=== PATIENT | female | born 1945 | race Caucasian/White ===

== ENCOUNTER 2017-03-12 07:12 | Observation (INO) ==
[~2017-03-12 07:12] MED LIST: ASPIRIN 325 MG TABLET PO ONE; DIAZEPAM 5 MG TABLET PO ONE; MAGNESIUM SULF RIDER 2 GM in PREMIX 1 EACH IV PRN; POTASSIUM CHLORIDE RIDER 10 MEQ in PREMIX 1 EACH IV PRN; SODIUM CHLORIDE 0.45% 1,000 ML IV SCH; diphenhydrAMINE CAP 25 MG CAPSULE PO ONE
[2017-03-12] MEDS ORDERED: DIAZEPAM 5 MG TABLET ONE (07:58)
[2017-03-12] MEDS ORDERED: diphenhydrAMINE CAP 25 MG CAPSULE ONE (07:58)
[2017-03-12] MEDS ORDERED: HEPARIN/NACL 0.9% 2 UNITS/ML 1,000 ML IV ONE (08:51)
[2017-03-12] MEDS ORDERED: LIDOCAINE 1% 20 ML VIAL ONE (08:51)
[2017-03-12] MEDS ORDERED: MIDAZOLAM 2 MG/2 ML VIAL ONE (09:29)
[2017-03-12] MEDS ORDERED: fentaNYL 100 MCG/2 ML VIAL ONE (09:29)
--- NOTE | 2017-03-12 10:10 | History and Physical Update ---
Sedation H&P Update - History and Physical H&P was reviewed, the patient examined and there: are no changes in the patients condition since last H&P was completed. - Dictation Physical: refer to scanned H&P - Physical Exam Mental Status: alert and oriented Heart: regular rate and rhythm Lung: clear to auscultation Abdomen: within normal limits Vitals: within normal limits - Sedation Plan for Sedation: moderate Patient Consent: Procedure disscussed with patient and patinet has consented., Risks and benefits were discussed with patient,including infection,, bleeding, injury to surrounding structures, seizure, temporary nerve, Patient understands and accepts potential risks/benefits and agrees to, proceed. ASA Class: IV Airway Assessment: Class II: Soft palate, uvula, fauces visible
[2017-03-12] MEDS ORDERED: ACETAMINOPHEN/CODEINE 300-30 MG TABLET PO PRN (10:13)
[2017-03-12] MEDS ORDERED: ACETAMINOPHEN 325 MG TABLET PO PRN (10:13)
[2017-03-12] MEDS ORDERED: MORPHINE 2 MG/1 ML SYRINGE IV PRN (10:13)
[2017-03-12] MEDS ORDERED: FAMOTIDINE 20 MG TABLET PO SCH (10:30)
[2017-03-12] MEDS ORDERED: diphenhydrAMINE CAP 25 MG CAPSULE PO SCH (10:30)
[2017-03-12] MEDS ORDERED: predniSONE 20 MG TABLET PO SCH (10:30)
[2017-03-12] MEDS ORDERED: predniSONE 20 MG TABLET PO ONE (12:09)
--- NOTE | 2017-03-12 13:13 | Electrophysiology Consultation ---
History of Present Illness - Consult Narrative Reason for consult: AF, CHF, NICM, LBBB History of present illness: Ms. Zambrano is a 71 year old female, followed by Dr. Sears. EP consult was requested for persistent, symptomatic A. fib, CHF, nonischemic cardiomyopathy, ejection fraction 25%, CHF class III. She has a history of hypertension, well controlled, hypothyroidism, controlled with Synthroid, MARINA inhibitor tolerance, was able to take losartan. Hyperlipidemia, treated with statin. Remote history of PVCs. Also has a history of obstructive sleep apnea. Ejection fraction was trending around 40%, however, on recent evaluation, including nuclear stress test and LHC, her ejection fraction declined to 25%, with no obstructive CAD. She was also noted to have atrial fibrillation, with somewhat elevated heart rate. Left bundle branch block, QRS 150-160 ms. This is chronic. She has no energy, gets fatigued even with light activity, CHF class III. This is despite good compliance to medical regimen. No history of bleeding issues, Eliquis to started 2 weeks ago, was then held for the planned heart catheterization. No history of CVA. CC: Yeni Sears, - Home Medications and Allergies Home Medications: Home Medications Medication Instructions Recorded Confirmed Type Allopurinol 100 mg PO DAILY 03/11/17 03/12/17 History Calcium (Carbonate) [Caltrate 600] 1,200 mg PO DAILY 03/11/17 03/12/17 History Furosemide Tab [Lasix Tab] 20 mg PO DAILY 03/11/17 03/12/17 History Levocetirizine Dihydrochloride 5 mg PO BEDTIME 03/11/17 03/12/17 History [Xyzal] Levothyroxine Tab [Synthroid Tab] 150 mcg PO DAILY@0700 03/11/17 03/12/17 History Losartan Potassium 100 mg PO DAILY 03/11/17 03/12/17 History Magnesium Oxide 400 mg PO BEDTIME 03/11/17 03/12/17 History Multivitamin [Multivitamins] 1 each PO BEDTIME 03/11/17 03/12/17 History Pantoprazole Tab [Protonix Tab] 40 mg PO DAILY 03/11/17 03/12/17 History Potassium Chloride [Klor-Con M20] 20 meq PO BID 03/11/17 03/12/17 History dilTIAZem HCl [Cartia XT] 240 mg PO DAILY 03/11/17 03/12/17 History Apixaban [Eliquis] 5 mg PO BID 03/12/17 03/12/17 History Aspirin [Ecotrin] 81 mg PO DAILY 03/12/17 03/12/17 History Famotidine Tab [Pepcid Tab] 1 tablet PO DIRECTED 03/12/17 03/12/17 History diphenhydrAMINE CAP [Benadryl Cap] 2 capsule PO DIRECTED 03/12/17 03/12/17 History predniSONE TAB [PredniSONE] 60 mg PO DIRECTED 03/12/17 03/12/17 History Allergies/Adverse Reactions: Allergies Allergy/AdvReac Type Severity Reaction Status Date / Time adhesive tape Allergy Verified 03/12/17 07:44 Shrimp Allergy Verified 03/12/17 07:44 Medical,Surgical,& Family Hx - Medical History Neurology: No history of: Seizures - Social History Smoking Status: Never smoker Frequency of Alcohol Use: Occasionally Type of Drug Use: None 12 point system: reviewed and no additional remarkable complaints except as stated Exam - Constitutional Vitals: Period Temp Pulse Resp BP Sys/Escobar Pulse Ox Last 24 Hr 98.2 F 54 16 143/84 96 General appearance: no acute distress, morbidly obese - Head Head exam: Present: normal inspection - Eye Eye exam: Absent: scleral icterus Pupils: Absent: dilated - ENT ENT exam: Present: normal external ear exam - Neck Neck exam: Present: normal inspection - Respiratory Respiratory exam: Present: clear to auscultation bilaterally. Absent: chest wall tenderness - Cardiovascular Cardiovascular exam: Present: irregular rhythm, systolic murmur. Absent: JVD - GI/Abdominal GI/Abdominal exam: Present: normal bowel sounds - Extremities Exam Extremities exam: Present: normal inspection, normal capillary refill, edema (1+ ) - Back Exam Back exam: Present: normal inspection - Neurological Exam Neurological exam: Present: alert, oriented X3 - Psychiatric Psychiatric exam: Present: normal affect, normal mood - Skin Skin exam: Present: normal color, warm, cyanosis Results - Labs Lab Results: I have reviewed the past 24 hour labs Assessment and Plan (1) CHF (congestive heart failure), NYHA class III Status: Acute Assessment and plan: 71-year-old female, nonischemic cardiomyopathy, ejection fraction 25%, CHF class III, left bundle branch block QRS 150-160 ms, persistent, symptomatic atrial fibrillation. Hypertension, obstructive sleep apnea, treated hypothyroidism, history of PVCs, is intolerance, able to take ARB. -Discussed risks and benefits of management options. Symptomatic A. fib, NICM/ CHF/LBBB. -We will proceed with a ROBERT guided cardioversion tomorrow. N.p.o. after midnight. Notify anesthesia. -We will consider short-term amiodarone use due to persistent atrial fibrillation, comorbidities limit antiarrhythmic options -Continue anticoagulation with Eliquis -Cardiomyopathy was progressive and her CHF symptoms are persistent, despite good compliance with medical regimen. We will plan for LOADING AND UNLOADING SUPERVISOR-D in the near future. Current Visit: Yes Specialty Discharge - Follow Up or Referrals
--- NOTE | 2017-03-12 15:14 | Order Completion Report ---
See report scanned to EMR
[2017-03-12] MEDS: POTASSIUM CHLORIDE 20 MEQ TABLET PO SCH (20:51)
[2017-03-12] MEDS: APIXABAN 5 MG TABLET PO SCH (20:51)
[2017-03-12] MEDS ORDERED: CETIRIZINE 10 MG TABLET PO SCH (21:00)
[2017-03-12] MEDS ORDERED: MULTIVITAMIN (CENTRUM) TABLET PO SCH (21:00)
[2017-03-12] MEDS ORDERED: MAGNESIUM OXIDE 400 MG TABLET PO SCH (21:00)
[2017-03-13 05:08] LABS: Basophils % 0.1 % (0.0-0.8); Hematocrit 37.8 VOL% (35.7-47.0); Hemoglobin 12.3 GM/DL (12.0-16.0); Immature Granulocytes % 0.7 %; Immature Granulocytes Absolute 0.07 #; Lymphocytes # 0.7 10*3/uL (1.4-4.0); Lymphocytes % 7.4 % (21.3-54.2); Mean Corpuscular HGB Conc 32.5 GM/DL (32-36); Mean Corpuscular Hemoglobin 30 PG (27-34); Mean Corpuscular Volume 91.7 FL (87-102); Mean Platelet Volume 11.7 FL (9.6-12.0); Monocytes # 0.4 10*3/uL (0.11-0.8); Monocytes % 4.4 % (1.7-12.7); Neutrophils # 8.4 10*3/uL (1.4-7.4); Neutrophils % 87.4 % (38.7-73.9); Platelet Count 202 T/CUMM (130-400); Red Blood Count 4.12 MC/CUMM (3.8-5.5); White Blood Count 9.6 T/CUMM (4-12)
[2017-03-13 05:46] LABS: Osmolality,Calculated 287.1 MOS/KG (273-304); Potassium 4.5 MMOL/L (3.5-5.1)
[2017-03-13] MEDS: LEVOTHYROXINE 150 MCG TABLET PO SCH ×2 (06:20→09:45)
[2017-03-13] MEDS ORDERED: ETOMIDATE 20 MG/10 ML VIAL IV ONE ×2 (07:45→08:24)
[2017-03-13] MEDS ORDERED: PROPOFOL 200 MG/20 ML VIAL IV ONE ×2 (07:45→08:24)
--- NOTE | 2017-03-13 07:45 | History and Physical Update ---
Sedation H&P Update - History and Physical H&P was reviewed, the patient examined and there: are no changes in the patients condition since last H&P was completed. - Dictation Physical: refer to scanned H&P - Physical Exam Mental Status: alert and oriented Heart: other (irregular, tachy) Lung: clear to auscultation Abdomen: within normal limits Vitals: within normal limits - Sedation Plan for Sedation: MAC Patient Consent: Procedure disscussed with patient and patinet has consented., Risks and benefits were discussed with patient,including infection,, bleeding, injury to surrounding structures, seizure, temporary nerve, Patient understands and accepts potential risks/benefits and agrees to ASA Class: IV Airway Assessment: Class III: Soft palate, base of uvula visible
--- NOTE | 2017-03-13 08:07 | Event Note ---
PROCEDURAL SUMMARY ROBERT guided cardioversion. Successful procedure, no complications. Timeout was performed before the procedure. Sedation was provided by the anesthesia team. A ROBERT was performed to rule out intracardiac thrombi. See report separately. Briefly, no intracardiac thrombi were found. Synchronized DC cardioversion was performed with a 200 J biphasic shock. The atrial fibrillation persisted. Synchronized DC cardioversion was performed with a 360 J biphasic shock. Sinus rhythm resumed with very frequent PACs. The patient woke up uneventfully from sedation. There were no complications. Plan: Start p.o. amiodarone load. Continue anticoagulations with Eliquis.
[2017-03-13] MEDS ORDERED: HYDROCORTISONE 0.5% CREAM 28.35 GM TUBE TOP PRN (08:10)
--- NOTE | 2017-03-13 08:10 | Electrophysiology Progress Not ---
Assessment and Plan (1) CHF (congestive heart failure), NYHA class III Status: Acute Assessment and plan: 71-year-old female, nonischemic cardiomyopathy, ejection fraction 25%, CHF class III, left bundle branch block QRS 150-160 ms, persistent, symptomatic atrial fibrillation. Hypertension, obstructive sleep apnea, treated hypothyroidism, history of PVCs, ACEI intolerance, able to take ARB. 03/12: ROBERT/DCCV -Start p.o. amiodarone load, 400 mg p.o. twice daily, then in 1 week, decrease to 200 mg daily. -Discontinue Cardizem. Start Coreg 3.125 mg twice daily. -Continue anticoagulation with Eliquis. -Follow-up with EP in 2 weeks, we will plan for GLOVE TAGGER-D implant for severe nonischemic cardiomyopathy, CHF, left bundle branch block Current Visit: Yes Electrophysiology Subjective Interval history: She remained in atrial fibrillation, RVR overnight. Mild shortness of breath, no chest pain Exam - Constitutional Vitals: Period Temp Pulse Resp BP Sys/Escobar Pulse Ox Last 24 Hr 97.2 F-97.5 F 80-95 16-20 138-152/81-112 93-99 General appearance: no acute distress, morbidly obese - Head Head exam: Present: normal inspection. Absent: contusion - Eye Eye exam: Absent: periorbital swelling Pupils: Absent: dilated - ENT ENT exam: Present: normal external ear exam - Neck Neck exam: Present: normal inspection - Respiratory Respiratory exam: Present: clear to auscultation bilaterally. Absent: chest wall tenderness - Cardiovascular Cardiovascular exam: Present: irregular rhythm, systolic murmur, tachycardia. Absent: JVD - GI/Abdominal GI/Abdominal exam: Present: normal bowel sounds. Absent: distended - Extremities Exam Extremities exam: Present: normal inspection, normal capillary refill. Absent: edema - Back Exam Back exam: Present: normal inspection - Neurological Exam Neurological exam: Present: alert, oriented X3 - Psychiatric Psychiatric exam: Present: normal affect, normal mood - Skin Skin exam: Present: normal color, warm. Absent: cyanosis Results - Labs CBC & BMP: 03/13/17 03:41 03/13/17 03:41 Lab Results: I have reviewed the past 24 hour labs Specialty Discharge - Follow Up or Referrals
--- NOTE | 2017-03-13 08:29 | Anesthesia Post-Op ---
Anesthesia Post OP - Post Ansesthetic Evaluation Patient seen in post op: Yes Resp: within normal limits CV: within normal limits Mental: within normal limits Temp: within normal limits [id number]: within normal limits Nausea and Vomiting: within normal limits Pain: within normal limits
[2017-03-13] MEDS ORDERED: AMIODARONE 200 MG TABLET PO SCH (09:00)
[2017-03-13] MEDS ORDERED: DILTIAZEM CD 240 MG CAPSULE PO SCH (09:00)
[2017-03-13] MEDS ORDERED: CALCIUM (CARBONATE) 600 MG TABLET PO SCH (09:00)
[2017-03-13] MEDS ORDERED: CARVEDILOL 3.125 MG TABLET PO SCH (09:00)
[2017-03-13] MEDS ORDERED: LOSARTAN 50 MG TABLET PO SCH (09:00)
[2017-03-13] MEDS ORDERED: ASPIRIN EC 81 MG TABLET PO SCH (09:00)
[2017-03-13] MEDS ORDERED: ALLOPURINOL 100 MG TABLET PO SCH (09:00)
[2017-03-13] MEDS ORDERED: FUROSEMIDE 20 MG TABLET PO SCH (09:00)
[2017-03-13] MEDS ORDERED: PANTOPRAZOLE 40 MG TABLET PO SCH (09:00)
[2017-03-13] MEDS: POTASSIUM CHLORIDE 20 MEQ TABLET PO SCH (09:37)
[2017-03-13] MEDS: APIXABAN 5 MG TABLET PO SCH (09:38)
--- NOTE | 2017-03-13 11:59 | Order Completion Report ---
See report scanned to EMR
--- NOTE | 2017-03-13 15:10 | Discharge Summary ---
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 Zambrano is a 71 year old female, followed by Dr. Sears. Past medical history includes: Nonischemic cardiomyopathy, chronic CHF (class III), hypertension, hypothyroidism, MARINA inhibitor intolerant (was able to take losartan), hyperlipidemia, MIGUEL and PVCs. She was seen in the cardiology clinic by Dr. Yeni Sears and underwent nuclear cardiac stress test. Previously , her EF was noted to be 40% per echocardiogram. Her nuclear stress test her EF was calculated to be 25%. The study was abnormal. Subsequently, she was set up for elective heart catheterization. This was performed March 12, 2017. She was noted to have angiographically normal coronary arteries. EF 25%, nonischemic cardiomyopathy. She has done well post catheterization. Right groin post catheterization was stable without bleeding, hematoma or bruit. Right groin precautions reviewed with the patient. She verbalizes understanding. Dr. East was consulted for persistent symptomatic A. fib. Eliquis was initiated approximately 2 weeks ago. She has had no problems with this. No bleeding issues. Dr. East did ROBERT guided cardioversion March 13 2017. Atrial fibrillation persisted after 200 J biphasic shock. 360 J biphasic shock was then attempted and sinus rhythm resumed with frequent PACs noted. Amiodarone load was initiated. Anticoagulation with Eliquis was continued. Plan to continue 400 mg of amiodarone twice daily. After 1 week decreased to 200 mg daily. Cardizem was discontinued and Coreg 3.125 mg twice a was initiated. Patient is doing well after ROBERT cardioversion. She continues to be in sinus rhythm with PACs. Heart rate in the 70s. Patient is anxious for discharge home. Having felt that she has not maximal medical therapy, she will be discharged home in stable condition. She will follow up with Dr. Sears in 2 weeks for groin check and EKG. Will plan for HEADING REPAIRER-D implant for severe nonischemic cardiomyopathy, CHF and chronic left bundle branch block in the near future. Patient verbalizes understanding of discharge instructions and discharge medications. - Time spent with patient Time with patient DS: Greater than 30 minutes Diagnosis - Discharge Diagnosis (1) Nonischemic cardiomyopathy Status: Chronic (2) CHF (congestive heart failure), NYHA class III Status: Chronic (3) Hypertension Status: Chronic (4) Obstructive sleep apnea Status: Chronic (5) Atrial fibrillation status post cardioversion Status: Acute (6) Hypothyroidism Status: Chronic (7) MARINA inhibitor intolerance Status: Chronic (8) Dyslipidemia Status: Chronic (9) Chronic anticoagulation Status: Chronic Specialty Discharge - Follow Up or Referrals Follow up with: Yeni Sears MD [Physician] - 2 Weeks (groin check, EKG ) Discharge Plan - Discharge Data Disposition: Disch To Home/Self Care Condition at Discharge: Stable Discharge Diet: heart healthy, low fat, low cholesterol, low salt diet Activity: no lifting (Avoid heavy lifting and spotting 1 week.), other (Post cath expectations) Hygiene: may shower, other (Post cath expectations) Weight Bearing at Discharge: weight bear as tolerated Driving: other (Post cath expectations) Contact your physician if you experience:: fever over 101, Difficulty voiding, Redness or swelling, Nausea/Vomiting, Shortness of breath, Bleeding, pain uncontrolled by pain medications - Discharge Medications New Carvedilol [Coreg] 3.125 mg PO BID #60 tablet Amiodarone Tab [Cordarone Tab] 400 mg PO BID #51 tablet Continue Potassium Chloride [Klor-Con M20] 20 meq PO BID Pantoprazole Tab [Protonix Tab] 40 mg PO DAILY Magnesium Oxide 400 mg PO BEDTIME Losartan Potassium 100 mg PO DAILY Levothyroxine Tab [Synthroid Tab] 150 mcg PO DAILY@0700 Furosemide Tab [Lasix Tab] 20 mg PO DAILY Calcium (Carbonate) [Caltrate 600] 1,200 mg PO DAILY Multivitamin [Multivitamins] 1 each PO BEDTIME Levocetirizine Dihydrochloride [Xyzal] 5 mg PO BEDTIME Allopurinol 100 mg PO DAILY predniSONE TAB [PredniSONE] 60 mg PO DIRECTED diphenhydrAMINE CAP [Benadryl Cap] 2 capsule PO DIRECTED Apixaban [Eliquis] 5 mg PO BID Famotidine Tab [Pepcid Tab] 1 tablet PO DIRECTED Discontinued dilTIAZem HCl [Cartia XT] 240 mg PO DAILY Aspirin [Ecotrin] 81 mg PO DAILY - Follow Up or Referral - Forms/Instructions Instructions: Left Heart Catheterization (DC), Cardioversion (GEN), Heart Healthy Diet (GEN), Coronary Artery Disease in Women (GEN) Exam - Constitutional Vitals: Period Temp Pulse Resp BP Sys/Escobar Pulse Ox Last 24 Hr 97.2 F-97.9 F 67-105 16-20 129-164/75-112 93-98 Exam: General: Appears well with no apparent distress. Pleasant and cooperative. Appears comfortable. HEENT: PERRL, normocephalic, atraumatic. Mucous membranes moist. No jaundice noted. Conjunctiva moist and clear, sclerae anicteric Neck: No JVD/HJR, no thyromegaly or lymphadenopathy noted. No carotid bruit appreciated Cardiac: Regular rate and rhythm. Systolic murmur. Lungs: Clear to auscultation without accessory muscle use to assist the respiratory pattern. Not requiring oxygen. Abdomen: Soft, bowel sounds normoactive. Nontender and nondistended. No abdominal bruit or thrill noted. No masses noted. Extremities: No clubbing, cyanosis noted. No edema noted. Upper extremity pulses 2+. Lower extremity pulses 2+. Capillary refill less than 3 seconds. Skin: No unusual lesions or rashes. No skin breakdown appreciated. Neuro: Awake, alert and oriented 3. Moves all extremities well without hemiparesis or paralysis. No essential tremor is appreciated. Discharge Results Procedures and tests throughout hospitalization: Pending Orders 03/12/17 06:00 CL heart Routine 03/13/17 06:02 CL heart Routine 03/14/17 04:00 Basic Metabolic Panel IN AM Comp Blood Count Auto Diff IN AM 03/15/17 04:00 Basic Metabolic Panel IN AM Comp Blood Count Auto Diff IN AM Labs on day of discharge: Labs from last 24 hours 03/13/17 03/13/17 03:41 03:41 WBC 9.6 RBC 4.12 Hgb 12.3 Hct 37.8 MCV 91.7 MCH 30 MCHC 32.5 RDW 14.0 Plt Count 202 MPV 11.7 Neut % (Auto) 87.4 H Lymph % (Auto) 7.4 L [place] % (Auto) 4.4 Eos % (Auto) 0.0 Baso % (Auto) 0.1 Neut # (Auto) 8.4 H Lymph # (Auto) 0.7 L [place] # (Auto) 0.4 Eos # (Auto) 0.0 Baso # (Auto) 0.0 Immature Gran % 0.7 Nucleated RBC % 0.0 Immature Gran # 0.07 Nucleated RBCs # 0.00 Immature Plt Fraction 0.0 Sodium 142 Potassium 4.5 Chloride 107 Carbon Dioxide 27 Anion Gap 12.5 BUN 25 H Creatinine 0.80 GFR Calculation 95 BUN/Creatinine Ratio 31.00 H Glucose 117 H Calculated Osmolality 287.1 Calcium 9.0 - Imaging and Cardiology Cardiology Procedure: report reviewed by me DS: Provider Date of admission: 03/12/17 Primary care physician: Berenice José MD Attending physician on admission: Dr. Sears. Consults: 03/12/17 10:14 Consult to Cardiac Rehabilitation [CONS] Routine Reason for Cardiac Rehabilitation: Risk Factor Modification Other Consult Comment: Evaluate and recommend 03/12/17 10:17 Consult to Physician [CONS] Routine Comment: NICM, afib, LBBB Consulting Provider: Feliciano East Discharging clinician: Linette Littlejohn NP Expected date of discharge: 03/13/17
[2017-03-13 16:33] VITALS: BP 150/104
--- NOTE | 2017-03-13 19:29 | Order Completion Report ---
See report scanned to EMR
== END 2017-03-13 17:30 | disposition home or self-care (01) ==
LOC: N.CL 07:12 → N.TELEN 07:12 → N.CL 07:37 → N.TELEN 14:34
PROVIDERS: ADMIT Internal Medicine Cardiovascular Disease; ATTEND Internal Medicine Cardiovascular Disease
PROC: CLCCHCL (ICD-10-PCS; 2017-03-12 09:45)